=== PATIENT | male | born 1975 | race Caucasian/White ===

== ENCOUNTER 2016-06-24 05:31 | Outpatient (CLI) | payer BC ==
[~2016-06-24] VITALS: Ht 177.8 cm; Wt 70.3 kg
--- NOTE | ~2016-06-24 | HEMODYNAMI ---
PATIENT:SD GIRARD MEDICAL RECORD: [id number] : 73 LOCATION:[facility] ADMISSION DATE: 06/24/16 Generatedon:06/24/201610:14 Patient name: SD GIRARD Patient #: [id number] SSN: : 1975 Date of study: 06/24/2016 Page: Of Hemodynamic Procedure Report Patient Data Patient Demographics Procedure consent was obtained First Name: SD Gender: Male Last Name: SHAJI : 1975 Middle Initial: A Age: 40 year(s) Patient #: [id number] Race: Unknown Additional ID: [id number] Contact details [address]: [address] [place] [address] DRIVE State: [place] City: [place] Zip code: [address] Past Medical History Allergies Allergen Reaction Date Comments Reported Other allergy 06/24/2016 oxycodone Admission Admission Data Admission Date: 06/24/2016 Admission Time: 5:31 Weight (lbs.): 155 Weight (kg.): 70.31 Procedure Procedure Types Cath Procedure Peripheral Cath Diagnostic Procedure Cath Peripheral Venography IVC/SVC Inferior Venacavagram Procedure Description Procedure Date Procedure Date: 06/24/2016 Procedure Start Time: 8:31 Procedure Staff Name Function Alonso Carson MD Performing Physician Branden Klein RT Scrub Tanika Moon RN Nurse Grace Mason RN Nurse Reema Mendosa RT Planer Setter Reema Mendosa RT Monitor Procedure Data Cath Procedure Fluoroscopy Diagnostic fluoroscopy Total fluoroscopy Time: time: 29.1 min 29.1 min Diagnostic fluoroscopy Total fluoroscopy dose: 984 dose: 984 mGy mGy Contrast Material Contrast Material Type Amount (ml) Isovue 300 125 Diagnostic catheters Device Type Used For End Catheter Placement Cook Cobra 2 5F catheter Merit ULTRA BOLUS FLUSH 5Fr 65CM catheter Angiodynamics SOS OMNI 2 NON B 5FR 65CM catheter Procedure Medications Medication Administration Route Dosage Fentanyl I.V. 50 mcg Versed 1 mg Fentanyl I.V. 50 mcg Versed I.V. 1 mg Benadryl I.V. 50 mg Versed I.V. 1 mg Fentanyl I.V. 50 mcg Versed I.V. 0.5 mg Versed I.V. 0.5 mg Versed I.V. 0.5 mg Versed I.V. 0.5 mg Hemodynamics Rest Heart Rate: 60 (bpm) Snapshots Pre Cath Intra NCS Post Cath Vital Signs Time Heart Resp SPO2 NIBP Rhythm Pain Sedation Rate (ipm) (%) (mmHg) Status Level (bpm) 7:47:36 72 18 98 112/73(89) NSR 0 (11) 10(A) , No pain 7:51:44 68 18 97 114/73(89) NSR 0 (11) 10(A) , No pain 7:55:54 67 18 97 115/66(86) NSR 0 (11) 10(A) , No pain 8:00:04 67 15 97 114/67(91) NSR 0 (11) 10(A) , No pain 8:04:03 70 15 98 104/71(87) NSR 0 (11) 10(A) , No pain 8:08:05 68 16 98 118/81(95) NSR 0 (11) 10(A) , No pain 8:12:13 66 15 97 125/76(86) NSR 0 (11) 10(A) , No pain 8:16:25 61 15 97 117/72(86) NSR 0 (11) 10(A) , No pain 8:20:37 68 15 99 117/67(88) NSR 0 (11) 10(A) , No pain 8:24:48 70 17 97 112/67(86) NSR 0 (11) 10(A) , No pain 8:28:58 61 16 95 108/66(83) NSR 0 (11) 10(A) , No pain 8:33:08 59 16 94 115/65(87) NSR 0 (11) 10(A) , No pain 8:37:18 58 18 93 113/71(87) NSR 0 (11) 10(A) , No pain 8:41:24 69 17 94 111/79(89) NSR 0 (11) 10(A) , No pain 8:46:40 64 19 96 116/74(89) NSR 0 (11) 9(A) , No pain 8:50:47 64 9 95 119/81(97) NSR 0 (11) 9(A) , No pain 8:54:57 63 24 95 112/73(89) NSR 0 (11) 10(A) , No pain 8:59:05 67 12 96 117/75(86) NSR 0 (11) 9(A) , No pain 9:03:15 66 18 97 112/72(81) NSR 0 (11) 10(A) , No pain 9:07:23 64 16 92 106/73(83) NSR 0 (11) 9(A) , No pain 9:11:29 59 11 96 109/72(83) NSR 0 (11) 9(A) , No pain 9:15:36 62 10 96 111/74(84) NSR 0 (11) 9(A) , No pain 9:19:44 59 8 96 117/72(93) NSR 0 (11) 9(A) , No pain 9:23:56 69 11 96 110/72(83) NSR 0 (11) 9(A) , No pain 9:28:06 64 17 96 106/62(81) NSR 0 (11) 9(A) , No pain 9:32:12 64 9 95 120/70(86) NSR 0 (11) 9(A) , No pain 9:36:26 58 20 96 114/65(85) NSR 0 (11) 9(A) , No pain 9:40:42 62 14 95 107/62(81) NSR 0 (11) 9(A) , No pain 9:44:52 62 11 95 107/62(81) NSR 0 (11) 9(A) , No pain 9:48:58 60 14 95 107/72(84) NSR 0 (11) 9(A) , No pain 9:53:07 58 28 95 106/62(79) NSR 0 (11) 9(A) , No pain 9:57:17 61 9 94 107/59(90) NSR 0 (11) 9(A) , No pain 10:01:23 55 9 95 110/70(82) NSR 0 (11) 10(A) , No pain 10:05:31 59 12 96 105/68(81) NSR 0 (11) 10(A) , No pain 10:09:37 58 7 100 109/70(87) NSR 0 (11) 10(A) , No pain 10:13:55 67 13 No Cuff NSR 0 (11) 10(A) , No pain Medications Time Medication Route Dose Verified Delivered Reason Notes Effectivenes s by by 8:30:07 Fentanyl I.V. 50 Garce Grace for mcg Marlon Marlon sedation RN RN 8:30:35 Versed 1 mg Grace Grace for Marlon Marlon sedation RN RN 8:35:02 Fentanyl I.V. 50 Grace Grace for mcg Marlon Marlon sedation RN RN 8:35:12 Versed I.V. 1 mg Grace Grace for Marlon Marlon sedation RN RN 8:40:20 Benadryl I.V. 50 mg [facility] 8:56:57 Versed I.V. 1 mg Tanika Tanika for Red [facility] sedation 9:05:41 Fentanyl I.V. 50 Tanika Tanika for mcg Red [facility] sedation 9:09:22 Versed I.V. 0.5 Tanika Tanika for mg Red [facility] sedation 9:18:54 Versed I.V. 0.5 Tanika Tanika for mg [facility] sedation 9:31:23 Versed I.V. 0.5 Tanika Tanika for mg [facility] sedation 9:52:36 Versed I.V. 0.5 Tanika Tanika for mg [facility] sedation Procedure Log Time Note 7:37:55 Patient Weight : 155 kg 7:39:26 Time tracking: Regular hours 7:39:33 Plan of Care:Hemodynamics will remain stable., Cardiac rhythm will remain stable., Comfort level will be maintained., Respiratory function will remain adequate., Patient/ family verbilizes understanding of procedure., Procedure tolerated without complication., Recovers from procedure without complications.. 7:39:41 Patient received from Outpatients to IR Alert and oriented. Tansferred to table in Supine position. 7:39:45 Signed procedure consent form obtained from patient. 7:39:51 H&P Date Dictated: 06/24/2016 Within 30 days and on chart.. 7:40:26 Pre-procedure instructions explained to patient. 7:40:27 Pre-op teaching completed and patient verbalized understanding. 7:40:29 Family in waiting room. 7:44:04 - 7:44:09 ----Pre-sedation anethsthesia assessment.---- 7:44:15 Previous problem with sedation/anesthesia? No ? 7:44:25 Snore? Yes 7:44:29 Sleep apnea? No 7:44:36 Deviated septum? No 7:44:38 Opens mouth fully? Yes 7:44:40 Sticks out tongue? Yes 7:44:44 Airway obstruction? No ? 7:44:52 Dentures? No ? 7:44:55 Patient diabetic? No. 7:45:04 Patient NPO since Midnight. 7:46:17 Patient allergic to Other allergyoxycodone 7:46:28 - 7:46:33 ECG and BP/O2 sat monitors applied to patient. 7:46:34 Vital chart was started 7:46:49 Full Disclosure recording started 7:46:49 - 7:47:13 IV patent on arrival in left forearm with 0.9% NaCl at [facility]. 7:47:17 - 7:53:48 Right groin area was prepped with chlora-prep and draped in sterile fashion 7:54:02 Alarms reviewed by Garfield Haq 7:54:03 Sharps counted by scrub and verified by RNerissaNNerissa 7:54:03 - 8:06:51 Use device set IR Diagnostic 8:06:53 Sterile Angiographic Pack opened to sterile field. 8:06:54 Bag Decanter opened to sterile field. 8:06:54 Acist Manifold opened to sterile field. 8:06:55 Acist Hand Control opened to sterile field. 8:06:56 Acist Syringe opened to sterile field. 8:07:28 TUBING, CONTRAST INJCTN HI PRES opened to sterile field. 8:07:30 Micropuncture VSI 4FR kit opened to sterile field. 8:07:31 [employer] DOC .035 guide wire opened to sterile field. 8:07:32 Terumo 5Fr [place] Sheath opened to sterile field. 8:12:44 Is the patient allergic to Iodine/contrast media? No. 8:12:59 - 8:15:17 Dr Carson in. Talking with patient regarding procedure. 8:25:07 A [employer] Cobra 2 5F catheter was advanced over the wire and used for . 8:29:05 Baseline sample Acquired. 8:29:11 Physician arrived 8:30:07 Fentanyl 50 mcg I.V. was administered by Grace Masno RN; for sedation; 8:30:35 Versed 1 mg was administered by Grace Mason RN; for sedation; 8:30:47 --------ALL STOP TIME OUT------ 8:30:48 Final Timeout: patient, procedure, and site verified with staff and physician. All members of the team are in agreement. 8:30:57 Right groin site verified by team. 8:31:04 Physical assessment completed. ASA score P 2 - A patient with mild systemic disease as per Alonso Carson MD. 8:31:11 Sedation plan: IV Moderate Sedation Versed, Fentanyl 8:31:23 Procedure started. 8:31:30 Local anesthetic to right femoral vein with Lidocaine 1% by Alonso Carson MD.INITIAL ACCESS ONLY 8:31:33 Venous access obtained using ultrasound guidance. 8:35:02 Fentanyl 50 mcg I.V. was administered by Grace Mason RN; for sedation; 8:35:12 Versed 1 mg I.V. was administered by Grace Mason RN; for sedation; 8:40:20 Benadryl 50 mg I.V. was administered by Grace Mason RN; ; 8:42:18 A Spinn[employer] ULTRA BOLUS FLUSH 5Fr 65CM catheter was advanced over the wire and used for . 8:47:10 Venogram performed 8:50:23 A AngiodynamvChatter SOS OMNI 2 NON B 5FR 65CM catheter was advanced over th e wire and used for . 8:50:44 Terumo TORQUE DEVICE PLASTIC .038 opened to sterile field. 8:50:56 Terumo ANGLE 180L glide wire opened to sterile field. 8:51:33 Cook BENTSON 145cm guide wire opened to sterile field. 8:52:27 Terumo 5FR ANGLED 65CM glide catheter opened to sterile field. 8:56:30 Terumo Super Stiff Angled 260cm glide wire opened to sterile field. 8:56:57 Versed 1 mg I.V. was administered by Tanika Moon RN; for sedation; 9:02:35 Terumo 6Fr [place] Destination Sheath opened to sterile field. 9:03:44 Cook REG 1 6FR. Guide sheath opened to sterile field. 9:05:41 Fentanyl 50 mcg I.V. was administered by Tanika Red RN; for sedation; 9:09:22 Versed 0.5 mg I.V. was administered by Tanika Moon RN; for sedation; 9:16:59 Terumo GT DOUBLE ANGLE .018 glide wire opened to sterile field. 9:17:15 RENEGADE STAIGHT 150CM microcatheter opened to sterile field. 9:18:54 Versed 0.5 mg I.V. was administered by Tanika Moon RN; for sedation; 9:31:23 Versed 0.5 mg I.V. was administered by Tanika Moon RN; for sedation; 9:40:47 INTERLOCK COILS DEPLOYED IN THE VEIN 4X8 LOT# [id number] 5X15 LOT #[id number] 5X15 LOT #[id number] 4X15 LOT #[id number] 4X12 LOT #[id number] 5X15 LOT #[id number] 5X15 LOT #[id number] 10X20 LOT #[id number] 10X20 LOT #[id number] 6X20 LOT #[id number] 8X20 LOT #[id number] 9:52:36 Versed 0.5 mg I.V. was administered by Tanika Moon RN; for sedation; 10:07:14 Procedure ended.(Physican Out) 10:07:25 Fluoroscopy time 29.10 minutes. 10:07:33 Fluoroscopy dose: 984 mGy 10:07:33 Flurop Dose total: 984 10:07:46 Contrast amount:Isovue 300 125ml. 10:07:48 Sharps counted by scrub and verified by R.N. 10:12:37 Procedure and supply charges have been captured, reviewed, submitted an d are correct. 10:14:16 Vital chart was stopped Device Usage Item Name Manufacture Quantity Catalog Number Hospital Part Current [facility] Lot# / Charge Number Stock Stock Serial# Code Sterile Cardinal 1 [id number] [id number] 5 Angiographic Health Pack Bag Decanter Microtek 1 [id number] 134624 62800 449897 5 Medical Inc. Acist Acist Medical 1 40309 175669 563275 363978 5 Manifold Systems Inc Acist Hand Acist Medical 1 13298 386163 584022 783648 5 Control Systems Inc Acist Syringe Acist Medical 1 55384 182117 603539 041009 20 Systems Inc TUBING, [facility] Medical 1 [id number] 150910 313303 051967 5 CONTRAST INJCTN HI PRES Micropuncture VSI VASCULAR 1 [id number] 721961 283181 5 VSI 4FR kit SOLUTIONS Cook DOC .035 [facility] 1 K07529 992763 193077 5 [id number] guide wire Terumo 5Fr Terumo 1 [id number] 910141 947156 498961 40 [place] Sheath Cook Cobra 2 [facility] 1 N00403 285714 692291 5 5F catheter Merit ULTRA [facility] 1 [id number] 728280 941010 5 BOLUS FLUSH 5Fr 65CM catheter Angiodynamics Angiodynamics 1 [id number] 383418 53245 576249 5 SOS OMNI 2 NON B 5FR 65CM catheter Terumo TORQUE [place] 1 TD01 370713 572724 962675 5 DEVICE Scientific PLASTIC .038 Terumo ANGLE Terumo 1 [id number] 246710 111755 395266 5 180L glide wire Cook BRANDON [facility] 1 C17791 993237 350608 5 [id number] 145cm guide wire Terumo 5FR Terumo 1 CG507 921866 164194 5 ANGLED 65CM glide catheter Terumo Super Terumo 1 [id number] 190283 809347 219502 5 Stiff Angled 260cm glide wire Terumo 6Fr Terumo 1 RSR01 534934 12135 008363 5 [place] Destination Sheath Cook REG 1 [facility] 1 [id number] 472599 679924 5 6FR. Guide sheath Terumo GT Terumo 1 [id number] 729410 797838 5 936542 DOUBLE ANGLE .018 glide wire RENEGADE [place] 1 [id number] 945897 508077 5 STAIGHT 150CM Scientific microcatheter Signature Audit [place] Stage Time Signature Unsigned Intra-Procedure 06/24/2016 Reema Mendosa 10:14:13 AM RT(R) Signatures Monitor : Reema Mendosa RT Signature : Date : Time : [facility] [address] [address]
[~2016-06-24 05:31] MED LIST: GLUCOSAMINE & C1 CAP PO; HYDROCODONE-APA1 TAB PO; IBUPROFEN400 MG PO; OMEPRAZOLE40 MG PO; PALGIC PO; [UNRECOGNIZED DRUG - OTHER]
[2016-06-24 06:10] LABS: BASOPHILS 0.3 % (0-2); EOSINOPHILS 1.7 % (0-7); HEMATOCRIT 44.6 % (42.0-54.0); HEMOGLOBIN 15.3 g/dL (13.5-17.5); IMMATURE GRANULOCYTES 0.3 % (0-5); LYMPHOCYTES 23.2 % (15-50); MCH 32.6 pg (26.0-34.0); MCHC 34.3 g/dL (31.0-37.0); MCV 94.9 fL (80.0-100.0); MEAN PLATELET VOLUME 10.1 fL (7.4-10.4); MONOCYTES 10.8 % (2-11); NEUTROPHILS 63.7 % (40-80); PLATELET COUNT 179 10x3/uL (130-400); RDW 12.1 % (11.5-14.5); WBC 6.4 10x3/uL (4.8-10.8)
[2016-06-24 06:20] LABS: APTT 25.2 SECONDS (22.8-39.4); INR 1.02 (0.85-1.17); PROTIME 13.2 SECONDS (11.6-15.0)
[2016-06-24 06:22] LABS: CALC OSMOLALITY 285 mosm/kg (275-300); CALCIUM 8.6 mg/dL (8.5-10.1); CARBON DIOXIDE 27.8 mmol/L (21.0-32.0); CHLORIDE - SERUM 107 mmol/L (98-107); CREATININE - SERUM 0.8 mg/dL (0.6-1.3); GLUCOSE 96 mg/dL (74-106); POTASSIUM - SERUM 4.3 mmol/L (3.5-5.1); SODIUM 142 mmol/L (136-145); UREA NITROGEN 22 mg/dL (7-18); eGFR NON AFRICAN AMERICAN > 90 mL/min (90-120)
[2016-06-24] MEDS ORDERED: POLY HIST FORTE PO (06:31)
[2016-06-24 06:37] VITALS: BP 108/67; Ht 177.8 cm; Wt 70.3 kg
--- NOTE | 2016-06-24 14:07 | NUR ---
1330 VS TAKEN AND PLACED ON POST -OP SHEET
--- NOTE | 2016-06-24 14:07 | NUR ---
1315 IV DC WITH CATHER TIP INTACT
== END 2016-06-24 13:45 | disposition home or self-care (01) ==
LOC: D.OPS 05:31 → D.RAD 08:00 → D.OPS 13:45
PROVIDERS: General Practice
DX: I86.1 Scrotal varices (principal); R10.2 Pelvic and perineal pain; Z01.812 Encounter for preprocedural laboratory examination

== ENCOUNTER → 2016-11-22 07:52 | Outpatient (CLI) | payer BC ==
[2016-06-24 06:37] VITALS: BMI 22.2
[~2016-11-22 07:52] MED LIST changes: +POLY HIST FORTE PO
== END | disposition home or self-care (01) ==
LOC: D.US 07:52
DX: N45.1 Epididymitis (principal)

== ENCOUNTER 2017-06-03 14:10 | Emergency (ER) | payer BC ==
[2016-06-24 06:37] VITALS: BMI 22.2
[2017-06-03 15:32] LABS: APPEARANCE CLEAR (CLEAR); BILIRUBIN NEGATIVE (NEGATIVE); COLOR YELLOW (YELLOW); GLUCOSE NEGATIVE (NEGATIVE); KETONE NEGATIVE (NEGATIVE); NITRITE NEGATIVE (NEGATIVE); PROTEIN NEGATIVE (NEGATIVE); UROBILINOGEN NORMAL (NORMAL)
== END 2017-06-03 17:32 | disposition home or self-care (01) ==
LOC: D.ER 14:10
PROVIDERS: Physician Assistant Medical
DX: N50.812 Left testicular pain (principal); N50.811 Right testicular pain; N50.3 Cyst of epididymis